=== PATIENT | female | born 1960 | race Caucasian/White ===

== ENCOUNTER → 2019-01-28 | Outpatient (CLI) | payer MEDICARE ==
--- NOTE | 2019-01-28 16:08 | US ---
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 GLAND SIZE: Right Lobe: 3.0 x 0.7 x 0.8 cm Overall Parenchyma: grossly heterogenous Left Lobe: 3.8 x 1.0 x 1.6 cm Overall Parenchyma: grossly heterogenous Isthmus Thickness: 0.5 cm NODULES RIGHT: # of nodules measured on right: 0 LEFT: # of nodules measured on left: 0 ISTHMUS: # of nodules measured in the isthmus: 0 Unable to differentiate specific nodules from grossly heterogeneous tissue. Bilateral neck scanned, no evidence of lymphadenopathy. IMPRESSION: No suspicious ultrasound abnormality
== END ==
LOC: RADUSWWP 09:27
PROVIDERS: ATTEND Family Medicine
DX: E03.9 Hypothyroidism, unspecified (principal); E04.2 Nontoxic multinodular goiter
CPT/HCPCS: 76536

== ENCOUNTER → 2021-11-24 | Outpatient (CLI) | payer MEDICARE ==
--- NOTE | 2021-11-24 08:21 | XR ---
EXAMINATION TYPE: XR elbow complete RT DATE OF EXAM: 11/24/2021 COMPARISON: None available INDICATION: Pain TECHNIQUE: 3 views of the right elbow FINDINGS: 2 mm bone fragment is seen at the distal aspect of the medial humeral epicondyle, nonspecific and cou ld be related to sequela of previous trauma or representing tiny enthesophyte. Osteophytosis of the coronoid process consistent with mild to moderate degenerative changes of the el bow joint. No sizable joint effusion. No definite acute fracture line identified. IMPRESSION: [id number] degenerative changes of the right elbow joint as described above.
--- NOTE | 2021-11-24 11:30 | XR ---
EXAMINATION TYPE: XR thoracic spine 2V DATE OF EXAM: 11/24/2021 COMPARISON: None available INDICATION: 61-year-old female, scoliosis and pain. No trauma. TECHNIQUE: Standard 3 views of the thoracic spine. FINDINGS: Exaggerated dorsal kyphosis. No significant anterolisthesis or retrolisthesis. No definite vertebral body collapse or acute displaced fracture. Degenerative changes of the thoracic spine with tiny multilevel opposing endplate osteophytosis mainl y involving the mid and lower thoracic vertebrae. Rather maintained intervertebral disc spaces. T1 and T2 vertebrae are suboptimally visualized in the lateral view. Apparently increased cardiac transverse diameter. IMPRESSION: Degenerative changes of the thoracic spine as described above.
--- NOTE | 2021-11-24 11:35 | XR ---
EXAMINATION TYPE: XR lumbosacral spine min 4V DATE OF EXAM: 11/24/2021 COMPARISON: None available INDICATION: 61-year-old female, pain TECHNIQUE: Standard 5 views of the lumbar spine. FINDINGS: Mild levoscoliosis of the upper lumbar spine with apex at the L1 level. Suboptimal oblique views. Exa ggerated lumbar lordosis. Minimal retrolisthesis of L1 over L2. Tiny multilevel opposing endplate ost eophytosis. Suspected L3-4 and L4-5 disc degeneration. Bilateral L4-5 facet osteoarthropathy. No definite vertebral body collapse or acute displaced fractur e. Scattered arterial atherosclerotic calcifications. Significant fecal loading of the colon. Unremar kable sacroiliac joints. IMPRESSION: Mild levoscoliosis of the lumbar spine with degenerative changes as detailed above. Further MRI asses sment can be considered if clinically required.
== END | disposition home or self-care (01) ==
LOC: RADXRMAIN 07:24
PROVIDERS: ATTEND Family Medicine
DX: M47.816 Spondylosis without myelopathy or radiculopathy, lumbar region (principal); M41.86 Other forms of scoliosis, lumbar region; M47.814 Spondylosis without myelopathy or radiculopathy, thoracic region; M19.021 Primary osteoarthritis, right elbow
CPT/HCPCS: 72070; 72110